=== PATIENT | male | born 1990 | race American Indian/Alaskan Native ===

== ENCOUNTER 2016-10-05 13:21 | Emergency (ER) | payer MEDICAID | END 2016-10-05 13:40 | disposition left against medical advice (07) | LOC: DL.ED 13:21 | DX: Z53.21 Procedure and treatment not carried out due to patient leaving prior to being seen by health care provider (principal) ==

== ENCOUNTER 2016-10-07 12:39 | Emergency (ER) | payer MEDICAID ==
--- NOTE | 2016-10-07 13:08 | EDM.PDOC ---
[id number] 6d RT HAND Time Seen by Provider: 10/07/16 13:05 Source: Reports: Patient History Limitations: Reports: No limitations - History of Present Illness INITIAL COMMENTS - FREE TEXT/NARRATIVE: patient complains of about 5 days of right hand pain.heavy object landed on to hand. Symptoms have been persistent. Describes most of this pain over the fourth and fifth metacarpal. He notes swelling but no erythema or active bruising at this time. Occasional paresthesia to the fourth and fifth finger Occurred When: other Occurred Where: home Method of Injury: direct blow Severity: moderate Pain/Injury Location: Reports: upper extremity, right Associated Symptoms: Reports: no other symptoms Allergies/ADRs: Allergies ketorolac tromethamine [From Toradol] Allergy (Verified 08/27/15 16:02) Redness Home Medications: Ambulatory Orders Acetaminophen [Tylenol] 1,000 mg PO ASDIRECTED PRN 10/07/16 [Confirmed 10/07/16] Ibuprofen [Ibuprofen] 600 mg PO ASDIRECTED 10/07/16 [Confirmed 10/07/16] Past Medical History - Past Health History Medical/Surgical History: Denies Medical/Surgical History Respiratory History: Reports: Asthma Other Musculoskeletal History: degeneration of intervertebral disc Psychiatric History: Reports: Depression Social & Family History - Tobacco Use Smoking Status *Q: Never Smoker Years of Tobacco use: 3 Packs/Tins Daily: 1 Used Tobacco, but Quit: Yes Month Tobacco Last Used: august 2014 Second Hand Smoke Exposure: No - Alcohol Use Days Per Week of Alcohol Use: 0 - Recreational Drug Use Recreational Drug Use: No - Living Situation & Occupation Living situation: Reports: with significant other Occupation: employed Review of Systems - Review of Systems Review Of Systems: ROS reveals no pertinent complaints other than HPI. Trauma Exam - Physical Exam Exam: See Below Exam Limited By: No limitations General Appearance: Reports: alert, WD/WN, no apparent distress Extremities: Reports: other (tenderness to palpation along the fourth and fifth metacarpal. Tender to palpation at the fourth and fifth MCP. Pain along the proximal phalanx fourth and fifth finger. No pain at the middle and distal phalanx. Pain with active finger flexion and extension. No pain with wrist flexion and extension.) Skin: Reports: Normal color, Warm/dry Course - Vital Signs Last Recorded V/S: Last Vital Signs Temp 99.2 F 10/07/16 12:52 Pulse 90 10/07/16 12:52 Resp 16 10/07/16 12:52 BP 133/77 10/07/16 12:52 Pulse Ox 100 10/07/16 12:52 - Re-Assessments/Exams Free Text/Narrative Re-Assessment/Exam: x-rays negative. No evidence of fracture dislocation. Radiology to review 10/07/16 13:21 Departure - Departure Time of Disposition: 13:21 Disposition: Home, Self-Care 01 Condition: good Clinical Impression: Right hand pain Contusion of right hand Qualifiers: Encounter type: initial encounter Qualified Code(s): S60.221A - Contusion of right hand, initial encounter Instructions: Tendinitis, [id number] Forms: ED Department Discharge Additional Instructions: May use ibuprofen 200 mg, 3 tablets 3 times a day. Alternate place and he to the hand. Ice and for about 20 minutes 2 times a day. May use heat to the hand as needed. Work on range of motion activities. Duke wrap as tolerated. Followup as needed. Call or return if any problems questions or concerns
[2016-10-07 13:13] VITALS: BP 133/77
--- NOTE | 2016-10-07 13:33 | CR ---
Clinical history: 25-year-old male with right hand pain. Interpretation: Mild soft tissue swelling ulnar aspect of the wrist and cortical irregularity with lucency at the ba se of the fifth metacarpal. Point tenderness? No sign of foreign body, inflammatory periostitis, other fracture or dislocation right hand or wrist . CONCLUSION: Suspicious. Close clinical correlation base of the fifth metacarpal please. Additional i maging may be necessary.
== END 2016-10-07 13:35 | disposition home or self-care (01) ==
LOC: DL.ED 12:39
DX: S60.221A Contusion of right hand, initial encounter (principal); J45.909 Unspecified asthma, uncomplicated; F32.9 Major depressive disorder, single episode, unspecified; Z88.8 Allergy status to other drugs, medicaments and biological substances; W22.8XXA Striking against or struck by other objects, initial encounter
CPT/HCPCS: 73130-RT; 99283